=== PATIENT | male | born 1980 | race Two or more races ===

== ENCOUNTER 2020-08-28 11:56 | Emergency (ER) | payer OTHER, SELFPAY ==
[2020-08-28 12:32] VITALS: BP 149/81; PULSE 92; RESP 16; TEMP 36.9; O2SAT 98; BMI 28.3
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
== END 2020-08-28 13:24 | disposition home or self-care (01) ==
PROVIDERS: Emergency Provider Emergency Medicine
DX: S16.1XXA Strain of muscle, fascia and tendon at neck level, initial encounter (principal); V49.40XA Driver injured in collision with unspecified motor vehicles in traffic accident, initial encounter; Y93.9 Activity, unspecified; Y92.410 Unspecified street and highway as the place of occurrence of the external cause; Y99.9 Unspecified external cause status
CPT/HCPCS: 99283